=== PATIENT | male | born 2005 | race Two or more races ===

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

== ENCOUNTER 2023-04-10 14:13 | Emergency (ER) | payer OTHER ==
[~2023-04-10] VITALS: Ht 177.8 cm; Wt 101.6 kg
== END 2023-04-10 21:54 | disposition home or self-care (01) ==
LOC: EMR PED 14:13
DX: R50.9 Fever, unspecified (principal); Z20.822 Contact with and (suspected) exposure to COVID-19

== ENCOUNTER 2023-10-16 12:29 | Emergency (ER) | payer OTHER ==
[~2023-10-16] VITALS: Ht 177.8 cm; Wt 99.8 kg
[2023-10-16 14:56] LABS: HEMATOCRIT 53.6 % (39.0-48.0); MEAN CORPUSCULAR HEMOGLOBIN 27.5 pg (27.00-32.0); MEAN CORPUSCULAR HGB CONC 33.5 g/dl (32.0-36.0); PLATELET COUNT 233 K/uL (150-450); RED BLOOD COUNT 6.53 M/uL (4.00-6.00); RED CELL DISTRIBUTION WIDTH 13.2 % (11.5-14.5)
== END 2023-10-16 16:19 | disposition home or self-care (01) ==
LOC: EMR PED 12:29 → ER 12:42 → EMR PED 12:42 → ER 16:19
PROVIDERS: General Practice
DX: J06.9 Acute upper respiratory infection, unspecified (principal); J45.909 Unspecified asthma, uncomplicated

== ENCOUNTER 2024-03-28 17:06 | Emergency (ER) | payer OTHER ==
[~2024-03-28] VITALS: Ht 177.8 cm; Wt 88.5 kg
== END 2024-03-28 20:06 | disposition home or self-care (01) ==
LOC: ER 17:07
DX: T25.021A Burn of unspecified degree of right foot, initial encounter (principal); X11.8XXA Contact with other hot tap-water, initial encounter; Y93.89 Activity, other specified; Y92.89 Other specified places as the place of occurrence of the external cause; Y99.9 Unspecified external cause status

== ENCOUNTER → 2024-08-20 | Emergency (ER) | payer OTHER | END | disposition left against medical advice (07) | LOC: ER 00:57 | DX: Z53.21 Procedure and treatment not carried out due to patient leaving prior to being seen by health care provider (principal) ==

== ENCOUNTER → 2024-12-23 | Emergency (ER) | payer OTHER ==
[~2024-12-23] VITALS: Ht 175.3 cm; Wt 90.7 kg
== END | disposition left against medical advice (07) ==
LOC: ER 11:56
DX: Z53.21 Procedure and treatment not carried out due to patient leaving prior to being seen by health care provider (principal)

== ENCOUNTER → 2025-03-06 | Emergency (ER) | payer OTHER ==
[~2025-03-06] VITALS: Ht 177.8 cm; Wt 98.4 kg
== END | disposition left against medical advice (07) ==
LOC: ER 19:55
DX: Z53.21 Procedure and treatment not carried out due to patient leaving prior to being seen by health care provider (principal)

== ENCOUNTER 2025-07-23 09:36 | Emergency (ER) | payer OTHER ==
[~2025-07-23] VITALS: Ht 177.8 cm; Wt 97.5 kg
[2025-07-23] MEDS ORDERED: ORPHENADRINE CITRATE 30 MG/ML AMPUL IM STA (10:31)
[2025-07-23] MEDS ORDERED: DEXAMETHASONE SODIUM PHOSPHATE 4 MG/ML VIAL IM STA (10:31)
[2025-07-23] MEDS ORDERED: KETOROLAC TROMETHAMINE 30 MG VIAL IM STA (10:31)
[2025-07-23] MEDS ORDERED: ORPHENADRINE CITRATE 30 MG/ML AMPUL ONE (10:42)
[2025-07-23] MEDS ORDERED: DEXAMETHASONE SODIUM PHOSPHATE 4 MG/ML VIAL ONE (10:43)
[2025-07-23] MEDS ORDERED: KETOROLAC TROMETHAMINE 30 MG VIAL ONE (10:43)
== END 2025-07-23 11:05 | disposition home or self-care (01) ==
LOC: ER 09:36
DX: M54.9 Dorsalgia, unspecified (principal); J45.909 Unspecified asthma, uncomplicated; M54.50 Low back pain, unspecified

== ENCOUNTER 2025-08-10 14:55 | Emergency (ER) | payer OTHER ==
[~2025-08-10] VITALS: Ht 177.8 cm; Wt 90.7 kg
[2025-08-10] MEDS ORDERED: ACETAMINOPHEN 500 MG GEL..CAP PO ONE ×2 (15:27→15:30)
[2025-08-10] MEDS ORDERED: CEFTRIAXONE SODIUM 1,000 MG VIAL ONE (15:28)
[2025-08-10] MEDS ORDERED: LIDOCAINE HCL VISCOUS 20MG/ML BLIST 15ML MM ONE ×2 (15:28→15:30)
[2025-08-10] MEDS ORDERED: DEXAMETHASONE SODIUM PHOSPHATE 4 MG/ML VIAL ONE (15:28)
[2025-08-10] MEDS ORDERED: CEFTRIAXONE SODIUM 1,000 MG VIAL IM ONE (15:30)
[2025-08-10] MEDS ORDERED: DEXAMETHASONE SODIUM PHOSPHATE 4 MG/ML VIAL IM ONE (15:30)
[2025-08-10 16:30] LABS: BASO % 0.4 % (0.1-1.2); EOS # 0.15 (0.04-0.54); EOS % 2.2 % (0.7-7.0); LYMPH # 2.07 (1.18-3.74); LYMPH % 30.4 % (19.3-53.1); MEAN PLATELET VOLUME 9.70 fl (9.4-12.4); MONO # 0.47 (0.24-0.82); MONO % 6.9 % (4.7-12.5); NEUT # 4.07 (1.56-6.13); NEUT % 60.0 % (34.0-71.1); RED CELL DISTRIBUTION WIDTH 12.3 % (11.6-14.4)
[2025-08-10 17:09] LABS: ALT/SGPT 18.0 U/L (12-78); AST/SGOT 7.0 U/L (15-37); BILIRUBIN TOTAL 1.54 mg/dL (0.3-1.2); BUN CREA RATIO 11.0 (7.0-25.0); CREATININE SERUM 1.01 mg/dL (0.70-1.30); GFR 92.37; GLOBULINA 4.0 G/DL (2.4-3.5); GLUCOSE FASTING 87.0 mg/dL (65-100); OSMOLALITY SERUM 280.0 MOSM/KG (275-295)
[2025-08-10 17:42] LABS: COVID-19 AG NEGATIVE (NEGATIVE)
[2025-08-10] MEDS ORDERED: IBU400 MG PO (17:55)
[2025-08-10] MEDS ORDERED: AMOXICILLIN500 MG PO (17:55)
== END 2025-08-10 18:10 | disposition home or self-care (01) ==
LOC: ER 14:56
DX: J02.9 Acute pharyngitis, unspecified (principal); J45.909 Unspecified asthma, uncomplicated; R51.9 Headache, unspecified; R05.8 Other specified cough; R50.9 Fever, unspecified; Z20.822 Contact with and (suspected) exposure to COVID-19